=== PATIENT | female | born 1990 | race Caucasian/White ===

== ENCOUNTER 2023-11-13 05:39 | Emergency (ER) | payer OTHER ==
[2023-11-13 05:48] VITALS: BP 122/84; PULSE 116; RESP 18; TEMP 98.6; BMI 33.6
[2023-11-13] MEDS ORDERED: DEXAMETHASONE SOD PHOSPHATE 10 MG/1 ML VIAL ONE (07:47)
[2023-11-13] MEDS ORDERED: KETOROLAC TROMETHAMINE 15 MG/ML VIAL ONE (07:47)
[2023-11-13] MEDS: KETOROLAC TROMETHAMINE 15 MG/ML VIAL IM ONE (07:55)
[2023-11-13] MEDS: DEXAMETHASONE 0.5 MG TABLET PO ONE (07:55)
[2023-11-13] MEDS ORDERED: ONDANSETRON *ODT* 4 MG TABLET ONE (08:56)
[2023-11-13] MEDS: ONDANSETRON *ODT* 4 MG TABLET SL ONE (09:00)
== END 2023-11-13 10:06 | disposition home or self-care (01) ==
LOC: JER 05:39
PROC: 3E0233Z Introduction of Anti-inflammatory into Muscle, Percutaneous Approach (ICD-10-PCS; principal; 2023-11-13)
DX: J02.9 Acute pharyngitis, unspecified (principal); R09.81 Nasal congestion; M79.10 Myalgia, unspecified site; R50.9 Fever, unspecified; R00.0 Tachycardia, unspecified; J06.9 Acute upper respiratory infection, unspecified; R05.9 Cough, unspecified; Z20.822 Contact with and (suspected) exposure to COVID-19
CPT/HCPCS: 0241U-QW; 87651; 96372; 99284-25; Q0162